=== PATIENT | female | born 1955 | race American Indian/Alaskan Native ===

== ENCOUNTER → 2018-11-27 | Outpatient (CLI) | payer MEDICARE, OTHER ==
[~2018-11-27] MED LIST: ALEN70 PO; ASPI81CH PO; ATOR10 PO; Ativan0.5 MG PO; DIVA250EC PO; LORA.5 PO; ONDA4ODT; PHENYTOIN SODI200 MG PO; RISP1 PO
[2018-11-27 14:33] LABS: Bilirubin, Urine Neg (Neg); Blood, Urine Neg (Neg); Glucose Qualitative, Urine Neg (Neg); Ketones, Urine Neg (Neg); Leukocyte Esterase, Urine Neg (Neg); Nitrite, Urine Neg (Neg); Protein, Urine Neg (Neg); Specific Gravity, Urine 1.015 (1.003-1.022); Urobilinogen, Urine NORM (Normal)
[2018-11-27 14:52] LABS: Appearance, Urine Clear (Clear); Color, Urine Yellow (P-Yellow)
== END | disposition home or self-care (01) ==
LOC: LAB SHORT 14:15 → LAB 14:15
PROVIDERS: Registered Nurse
DX: N39.0 Urinary tract infection, site not specified (principal)
CPT/HCPCS: 81003

== ENCOUNTER → 2019-07-05 | Outpatient (CLI) | payer MEDICARE, OTHER ==
[2019-07-07 13:33] LABS: Source, Urine Clean Catch
[2019-07-07 14:32] LABS: Bilirubin, Urine Neg (Neg); Blood, Urine Neg (Neg); Glucose Qualitative, Urine Neg (Neg); Ketones, Urine Neg (Neg); Leukocyte Esterase, Urine Neg (Neg); Nitrite, Urine Neg (Neg); Protein, Urine Neg (Neg); Specific Gravity, Urine 1.015 (1.003-1.022); Urobilinogen, Urine NORM (Normal)
[2019-07-07 15:25] LABS: Appearance, Urine Clear (Clear); Color, Urine Yellow (P-Yellow)
== END | disposition home or self-care (01) ==
LOC: LAB SHORT 13:28 → LAB 13:28
PROVIDERS: Registered Nurse
DX: N39.0 Urinary tract infection, site not specified (principal)
CPT/HCPCS: 81003

== ENCOUNTER → 2019-08-01 | Outpatient (CLI) | payer MEDICARE, OTHER ==
[2019-08-01 14:48] LABS: Dilantin (Phenytoin), Total 18.2 ug/mL (10.0-20.0); Valproic Acid 44.3 ug/mL (50.0-100.0)
== END | disposition home or self-care (01) ==
LOC: LAB SHORT 12:25 → LAB 12:25
PROVIDERS: Registered Nurse
DX: Z51.81 Encounter for therapeutic drug level monitoring (principal); Z79.899 Other long term (current) drug therapy
CPT/HCPCS: 80164; 80185

== ENCOUNTER → 2020-05-12 | Outpatient (CLI) | payer MEDICARE, OTHER ==
[2020-05-12 14:02] LABS: Dilantin (Phenytoin), Total 13.1 ug/mL (10.0-20.0); Valproic Acid 54.7 ug/mL (50.0-100.0)
== END | disposition home or self-care (01) ==
LOC: LAB SHORT 12:29 → LAB 12:29
PROVIDERS: Registered Nurse
DX: Z51.81 Encounter for therapeutic drug level monitoring (principal); Z79.899 Other long term (current) drug therapy
CPT/HCPCS: 80164; 80185

== ENCOUNTER → 2020-07-28 | Outpatient (CLI) | payer MEDICARE, OTHER | END | disposition home or self-care (01) | LOC: LAB SHORT 09:15 → LAB 09:15 | DX: Z51.81 Encounter for therapeutic drug level monitoring (principal); Z79.899 Other long term (current) drug therapy | CPT/HCPCS: 80164; 80185 ==

== ENCOUNTER → 2020-10-20 | Outpatient (CLI) | payer MEDICARE, OTHER ==
[2020-10-20 15:13] LABS: BASOPHILS ABSOLUTE AUTO 0.01 K/mm3 (0.00-0.23); BASOPHILS PERCENT AUTO 0 % (0-2); EOSINOPHILS ABSOLUTE AUTO 0.03 K/mm3 (0.00-0.68); EOSINOPHILS PERCENT AUTO 0 % (0-6); Hematocrit 42.6 % (33.0-51.0); Hemoglobin 14.2 g/dL (11.5-16.0); IMMATURE GRAN ABSOLUTE AUTO 0.02 K/mm3 (0.00-0.10); IMMATURE GRAN PERCENT AUTO 0 % (0-1); LYMPHOCYTES PERCENT AUTO 20 % (21-46); MONOCYTES ABSOLUTE AUTO 1.13 K/mm3 (0.16-1.47); MONOCYTES PERCENT AUTO 13 % (4-13); Mean Corpuscular HGB 32.4 pg (26.0-34.0); Mean Corpuscular HGB Conc 33.3 g/dL (31.5-36.5); Mean Corpuscular Volume 97 fL (80-100); Mean Platelet Volume 10.3 fL (9.1-12.4); NEUTROPHILS ABSOLUTE AUTO 5.75 K/mm3 (1.96-9.15); NEUTROPHILS PERCENT AUTO 67 % (41-73); Platelet Count 176 K/mm3 (150-400); RDW Coefficient Variation 13.6 % (11.7-14.2); RDW Standard Deviation 48.8 fL (35.1-46.3); Red Blood Cell Count 4.38 M/mm3 (3.80-5.20); White Blood Cell Count 8.64 K/mm3 (4.00-11.30)
[2020-10-20 15:31] LABS: Alanine Aminotransfer (ALT/SGP 36 U/L (12-78); Albumin, Blood 3.2 g/dL (3.4-5.0); Albumin/Globulin Ratio 0.8 (0.8-1.8); Alk Phos 56 U/L (50-136); Anion Gap 6 mmol/L (6-16); Aspartate Aminotrans (AST/SGOT 52 U/L (12-37); Bilirubin, Total 0.3 mg/dL (0.1-1.0); Blood Urea Nitrogen 13 mg/dL (8-24); Bun/Creatinine Ratio 19.1 (12.0-20.0); CHOL/HDL RATIO 2.2; CO2, Blood 31 mmol/L (21-32); Calcium, Blood 8.8 mg/dL (8.5-10.1); Chloride, Blood 102 mmol/L (98-108); Cholesterol 188 mg/dL (50-200); Creatinine, Blood 0.68 mg/dL (0.40-1.00); Globulin, Blood 4.1 g/dL (2.2-4.0); Glomerular Filtration Rate >60 (60-); Glucose, Blood 83 mg/dL (70-99); HDL Cholesterol 85 mg/dL (>39); Low Density Lipoprotein Chol 84 mg/dL (0-110); Potassium, Blood 4.1 mmol/L (3.5-5.5); Sodium, Blood 139 mmol/L (136-145); Total Protein, Blood 7.3 g/dL (6.4-8.2); Triglycerides 94 mg/dL (30-160); Vancomycin, Random <0.8 ug/mL; Very Low Density Lipoprot Chol 18 mg/dL (6-32)
== END | disposition home or self-care (01) ==
LOC: LAB 07:35 → LAB SHORT 07:35
PROVIDERS: Registered Nurse
DX: Z51.81 Encounter for therapeutic drug level monitoring (principal); E78.5 Hyperlipidemia, unspecified; Z79.899 Other long term (current) drug therapy
CPT/HCPCS: 80053; 80061; 80185; 80202; 85025

== ENCOUNTER → 2020-10-28 | Outpatient (CLI) | payer MEDICARE, OTHER ==
[2020-10-28 17:31] LABS: Dilantin (Phenytoin), Total 5.3 ug/mL (10.0-20.0); Valproic Acid 77.4 ug/mL (50.0-100.0)
== END | disposition home or self-care (01) ==
LOC: LAB SHORT 13:27 → LAB 13:27
PROVIDERS: Registered Nurse
DX: Z51.81 Encounter for therapeutic drug level monitoring (principal); Z79.899 Other long term (current) drug therapy
CPT/HCPCS: 80164; 80185

== ENCOUNTER → 2021-04-05 | Outpatient (CLI) | payer MEDICARE, OTHER ==
[2021-04-05 15:49] LABS: Dilantin (Phenytoin), Total 6.8 ug/mL (10.0-20.0)
== END | disposition home or self-care (01) ==
LOC: LAB SHORT 07:43 → LAB 07:43
PROVIDERS: Registered Nurse
DX: R89.2 Abnormal level of other drugs, medicaments and biological substances in specimens from other organs, systems and tissues (principal)
CPT/HCPCS: 80185

== ENCOUNTER → 2021-05-09 | Outpatient (CLI) | payer MEDICARE, OTHER ==
[2021-05-09 13:05] LABS: Dilantin (Phenytoin), Total 14.3 ug/mL (10.0-20.0); Valproic Acid 55.4 ug/mL (50.0-100.0)
== END ==
LOC: LAB SHORT 11:11
PROVIDERS: Registered Nurse
DX: Z51.81 Encounter for therapeutic drug level monitoring (principal); Z79.899 Other long term (current) drug therapy; R56.9 Unspecified convulsions
CPT/HCPCS: 80164; 80185

== ENCOUNTER → 2021-07-15 | Outpatient (CLI) | payer OTHER ==
[2021-07-15 18:35] LABS: Source, Urine Clean Catch
[2021-07-15 19:25] LABS: Appearance, Urine Clear (Clear); Bilirubin, Urine Neg (Neg); Blood, Urine Neg (Neg); Color, Urine Yellow (P-Yellow); Glucose Qualitative, Urine Neg (Neg); Ketones, Urine Neg (Neg); Leukocyte Esterase, Urine Neg (Neg); Nitrite, Urine Neg (Neg); Protein, Urine Neg (Neg); Urobilinogen, Urine NORM (Normal)
== END ==
LOC: LAB SHORT 18:33
PROVIDERS: Registered Nurse
DX: N39.0 Urinary tract infection, site not specified (principal)
CPT/HCPCS: 81003

== ENCOUNTER → 2021-08-10 | Outpatient (CLI) | payer OTHER ==
[2021-08-10 13:48] LABS: Dilantin (Phenytoin), Total 19.9 ug/mL (10.0-20.0); Valproic Acid 58.1 ug/mL (50.0-100.0)
== END | disposition home or self-care (01) ==
LOC: LAB SHORT 08:10
PROVIDERS: Registered Nurse
DX: Z51.81 Encounter for therapeutic drug level monitoring (principal); Z79.899 Other long term (current) drug therapy
CPT/HCPCS: 80164; 80185

== ENCOUNTER → 2021-10-02 | Outpatient (CLI) | payer OTHER ==
[2021-10-03 14:21] LABS: Source, Urine Clean Catch
[2021-10-03 15:01] LABS: Appearance, Urine Clear (Clear); Bilirubin, Urine Neg (Neg); Blood, Urine 2+ (Neg); Glucose Qualitative, Urine Neg (Neg); Ketones, Urine Neg (Neg); Leukocyte Esterase, Urine Neg (Neg); Nitrite, Urine Neg (Neg); Protein, Urine Neg (Neg); Specific Gravity, Urine 1.015 (1.003-1.022); Urobilinogen, Urine NORM (Normal)
[2021-10-03 15:25] LABS: Color, Urine Pale Yellow (P-Yellow)
[2021-10-03 15:27] LABS: Bacteria Few /hpf; Squamous Epithelial Cells Few /hpf (Few); White Blood Cells, Urine 0-2 /hpf (0-5)
== END | disposition home or self-care (01) ==
LOC: LAB SHORT 14:16 → LAB 14:16
PROVIDERS: Registered Nurse
DX: N39.0 Urinary tract infection, site not specified (principal)
CPT/HCPCS: 81001

== ENCOUNTER → 2021-11-01 | Outpatient (CLI) | payer OTHER ==
[2021-11-01 12:31] LABS: BASOPHILS ABSOLUTE AUTO 0.04 K/mm3 (0.00-0.23); BASOPHILS PERCENT AUTO 1 % (0-2); EOSINOPHILS PERCENT AUTO 1 % (0-6); Hematocrit 43.9 % (33.0-51.0); Hemoglobin 14.3 g/dL (11.5-16.0); IMMATURE GRAN ABSOLUTE AUTO 0.01 K/mm3 (0.00-0.10); IMMATURE GRAN PERCENT AUTO 0 % (0-1); LYMPHOCYTES ABSOLUTE AUTO 2.88 K/mm3 (0.84-5.20); LYMPHOCYTES PERCENT AUTO 42 % (21-46); MONOCYTES ABSOLUTE AUTO 0.65 K/mm3 (0.16-1.47); MONOCYTES PERCENT AUTO 9 % (4-13); Mean Corpuscular HGB 31.6 pg (26.0-34.0); Mean Corpuscular HGB Conc 32.6 g/dL (31.5-36.5); Mean Corpuscular Volume 97 fL (80-100); Mean Platelet Volume 10.8 fL (9.1-12.4); NEUTROPHILS ABSOLUTE AUTO 3.24 K/mm3 (1.96-9.15); NEUTROPHILS PERCENT AUTO 47 % (41-73); Platelet Count 216 K/mm3 (150-400); RDW Coefficient Variation 13.5 % (11.7-14.2); RDW Standard Deviation 48.3 fL (35.1-46.3); Red Blood Cell Count 4.53 M/mm3 (3.80-5.20); White Blood Cell Count 6.92 K/mm3 (4.00-11.30)
[2021-11-01 13:38] LABS: Alanine Aminotransfer (ALT/SGP 27 U/L (12-78); Albumin, Blood 3.3 g/dL (3.4-5.0); Albumin/Globulin Ratio 0.9 (0.8-1.8); Alk Phos 74 U/L (50-136); Anion Gap 2 mmol/L (6-16); Aspartate Aminotrans (AST/SGOT 11 U/L (12-37); Bilirubin, Total 0.3 mg/dL (0.1-1.0); Blood Urea Nitrogen 14 mg/dL (8-24); Bun/Creatinine Ratio 24.9 (12.0-20.0); CHOL/HDL RATIO 2.6; CO2, Blood 32 mmol/L (21-32); Calcium, Blood 9.2 mg/dL (8.5-10.1); Chloride, Blood 108 mmol/L (98-108); Cholesterol 181 mg/dL (50-200); Creatinine, Blood 0.56 mg/dL (0.40-1.00); Dilantin (Phenytoin), Total 17.4 ug/mL (10.0-20.0); Globulin, Blood 3.7 g/dL (2.2-4.0); Glomerular Filtration Rate 102 (60-); Glucose, Blood 90 mg/dL (70-99); HDL Cholesterol 69 mg/dL (>39); LDL/HDL RATIO 1.2; Low Density Lipoprotein Chol 83 mg/dL (0-110); Potassium, Blood 4.2 mmol/L (3.5-5.5); Sodium, Blood 142 mmol/L (136-145); Triglycerides 145 mg/dL (30-160); Very Low Density Lipoprot Chol 29 mg/dL (6-32)
[2021-11-01 18:40] LABS: Source, Urine Clean Catch
[2021-11-01 19:43] LABS: Appearance, Urine Clear (Clear); Bilirubin, Urine Neg (Neg); Blood, Urine Neg (Neg); Color, Urine Yellow (P-Yellow); Glucose Qualitative, Urine Neg (Neg); Ketones, Urine Neg (Neg); Leukocyte Esterase, Urine Neg (Neg); Nitrite, Urine Neg (Neg); Protein, Urine Neg (Neg); Urobilinogen, Urine NORM (Normal)
== END ==
LOC: LAB SHORT 09:25 → LAB 09:25
PROVIDERS: Registered Nurse
DX: Z51.81 Encounter for therapeutic drug level monitoring (principal); E78.5 Hyperlipidemia, unspecified; I10 Essential (primary) hypertension; Z79.899 Other long term (current) drug therapy
CPT/HCPCS: 36415; 80053; 80061; 80164; 80185; 81003; 85025

== ENCOUNTER → 2022-02-01 | Outpatient (CLI) | payer OTHER ==
[2022-02-01 13:51] LABS: Dilantin (Phenytoin), Total 19.3 ug/mL (10.0-20.0); Valproic Acid 48.3 ug/mL (50.0-100.0)
== END ==
LOC: LAB 08:45 → LAB SHORT 08:45
PROVIDERS: Registered Nurse
DX: Z51.81 Encounter for therapeutic drug level monitoring (principal); Z79.899 Other long term (current) drug therapy
CPT/HCPCS: 80164; 80185

== ENCOUNTER → 2022-03-03 | Outpatient (CLI) | payer MEDICARE, OTHER ==
[2022-03-03 20:11] LABS: Appearance, Urine Clear (Clear); Bilirubin, Urine Neg (Neg); Blood, Urine Neg (Neg); Color, Urine Yellow (P-Yellow); Glucose Qualitative, Urine Neg (Neg); Ketones, Urine Neg (Neg); Leukocyte Esterase, Urine Neg (Neg); Nitrite, Urine Neg (Neg); Protein, Urine Neg (Neg); Specific Gravity, Urine 1.015 (1.003-1.022); Urobilinogen, Urine NORM (Normal); pH, Urine 6.5 (5.0-8.0)
== END | disposition home or self-care (01) ==
LOC: LAB SHORT 13:45
PROVIDERS: Registered Nurse
DX: N39.0 Urinary tract infection, site not specified (principal)
CPT/HCPCS: 81003

== ENCOUNTER → 2022-08-02 | Outpatient (CLI) | payer OTHER ==
[2022-08-02 13:04] LABS: Dilantin (Phenytoin), Total 15.4 ug/mL (10.0-20.0); Valproic Acid 26.7 ug/mL (50.0-100.0)
== END | disposition home or self-care (01) ==
LOC: LAB SHORT 10:03 → LAB 10:03
PROVIDERS: Registered Nurse
DX: Z51.81 Encounter for therapeutic drug level monitoring (principal); G40.89 Other seizures; Z79.899 Other long term (current) drug therapy
CPT/HCPCS: 80164; 80185

== ENCOUNTER → 2022-09-15 | Outpatient (CLI) | payer OTHER ==
[2022-09-15 13:51] LABS: Valproic Acid 35.4 ug/mL (50.0-100.0)
[2022-09-15 13:52] LABS: Alanine Aminotransfer (ALT/SGP 34 U/L (12-78); Albumin, Blood 3.1 g/dL (3.4-5.0); Alk Phos 44 U/L (50-136); Anion Gap 6 mmol/L (6-16); Aspartate Aminotrans (AST/SGOT 38 U/L (12-37); Bilirubin, Total 0.5 mg/dL (0.1-1.0); Blood Urea Nitrogen 26 mg/dL (8-24); Bun/Creatinine Ratio 33.3 (12.0-20.0); CO2, Blood 28 mmol/L (21-32); Calcium, Blood 8.7 mg/dL (8.5-10.1); Chloride, Blood 107 mmol/L (98-108); Creatinine, Blood 0.78 mg/dL (0.40-1.00); Dilantin (Phenytoin), Total 9.4 ug/mL (10.0-20.0); Globulin, Blood 3.2 g/dL (2.2-4.0); Glomerular Filtration Rate 84 (60-); Glucose, Blood 123 mg/dL (70-99); Phosphorus, Blood 3.5 mg/dL (2.5-4.9); Potassium, Blood 4.1 mmol/L (3.5-5.5); Sodium, Blood 141 mmol/L (136-145); Total Protein, Blood 6.3 g/dL (6.4-8.2)
[2022-09-21 14:09] LABS: 25-HYDROXY, VITAMIN D 54 ng/mL (.); 25-HYDROXY, VITAMIN D-2 <1.0 ng/mL (.); 25-HYDROXY, VITAMIN D-3 54 ng/mL (.)
== END | disposition home or self-care (01) ==
LOC: LAB 09:20 → LAB SHORT 09:20
PROVIDERS: Registered Nurse
DX: Z51.81 Encounter for therapeutic drug level monitoring (principal); M81.0 Age-related osteoporosis without current pathological fracture; Z79.899 Other long term (current) drug therapy
CPT/HCPCS: 80053; 80164; 80185; 84100

== ENCOUNTER → 2022-10-16 | Outpatient (CLI) | payer OTHER ==
[2022-10-16 19:02] LABS: Source, Urine Clean Catch
[2022-10-16 19:44] LABS: Bilirubin, Urine Neg (Neg); Blood, Urine Neg (Neg); Color, Urine Yellow (P-Yellow); Glucose Qualitative, Urine Neg (Neg); Nitrite, Urine Neg (Neg)
[2022-10-16 19:55] LABS: Appearance, Urine Hazy (Clear); Ketones, Urine 1+ (Neg); Leukocyte Esterase, Urine 2+ (Neg); Protein, Urine 3+ (Neg); Urobilinogen, Urine NORM (Normal)
[2022-10-16 20:04] LABS: Hyaline Casts 0-2 /lpf (0-2); Mucus Light (0-Heavy); Squamous Epithelial Cells Few /hpf (Few); Transitional Epithelial Cells Rare /hpf (0-Rare)
[2022-10-16 20:05] LABS: Amorphous Light (0-Heavy); Bacteria Mod /hpf; Red Blood Cells, Urine 0-2 /hpf (0-2)
== END | disposition home or self-care (01) ==
LOC: LAB SHORT 19:00 → LAB 19:00
PROVIDERS: Registered Nurse
DX: N39.0 Urinary tract infection, site not specified (principal)
CPT/HCPCS: 81001; 87086

== ENCOUNTER 2022-12-01 16:27 | Emergency (ER) | payer OTHER ==
[~2022-12-01] VITALS: Ht 165.1 cm; Wt 556.6 kg
[2022-12-01 17:52] LABS: Source, Urine Straight Cath
[2022-12-01 17:55] LABS: Appearance, Urine Hazy (Clear); Bilirubin, Urine Neg (Neg); Blood, Urine Neg (Neg); Color, Urine Yellow (P-Yellow); Glucose Qualitative, Urine Neg (Neg); Ketones, Urine Neg (Neg); Leukocyte Esterase, Urine 1+ (Neg); Nitrite, Urine Neg (Neg); Protein, Urine Neg (Neg); Specific Gravity, Urine 1.015 (1.003-1.022); Urobilinogen, Urine NORM (Normal)
[2022-12-01 18:09] LABS: Red Blood Cells, Urine 0-2 /hpf (0-2); Squamous Epithelial Cells Few /hpf (Few)
[2022-12-01 18:10] LABS: Amorphous Light (0-Heavy); Bacteria Mod /hpf
[2022-12-01 18:36] LABS: BASOPHILS ABSOLUTE AUTO 0.04 K/mm3 (0.00-0.23); BASOPHILS PERCENT AUTO 1 % (0-2); EOSINOPHILS ABSOLUTE AUTO 0.08 K/mm3 (0.00-0.68); EOSINOPHILS PERCENT AUTO 1 % (0-6); Hematocrit 42.3 % (33.0-51.0); Hemoglobin 14.1 g/dL (11.5-16.0); IMMATURE GRAN ABSOLUTE AUTO 0.01 K/mm3 (0.00-0.10); IMMATURE GRAN PERCENT AUTO 0 % (0-1); LYMPHOCYTES ABSOLUTE AUTO 3.09 K/mm3 (0.84-5.20); LYMPHOCYTES PERCENT AUTO 38 % (21-46); MONOCYTES ABSOLUTE AUTO 0.88 K/mm3 (0.16-1.47); MONOCYTES PERCENT AUTO 11 % (4-13); Mean Corpuscular HGB 32.5 pg (26.0-34.0); Mean Corpuscular HGB Conc 33.3 g/dL (31.5-36.5); Mean Corpuscular Volume 98 fL (80-100); Mean Platelet Volume 9.8 fL (9.1-12.4); NEUTROPHILS ABSOLUTE AUTO 4.05 K/mm3 (1.96-9.15); NEUTROPHILS PERCENT AUTO 50 % (41-73); Platelet Count 154 K/mm3 (150-400); RDW Standard Deviation 50.5 fL (35.1-46.3); Red Blood Cell Count 4.34 M/mm3 (3.80-5.20); White Blood Cell Count 8.15 K/mm3 (4.00-11.30)
[2022-12-01 18:58] LABS: Albumin, Blood 3.1 g/dL (3.4-5.0); Albumin/Globulin Ratio 0.8 (0.8-1.8); Bilirubin, Total 0.5 mg/dL (0.1-1.0); Bun/Creatinine Ratio 29.1 (12.0-20.0); Calcium, Blood 8.8 mg/dL (8.5-10.1); Creatinine, Blood 0.93 mg/dL (0.40-1.00); Globulin, Blood 3.9 g/dL (2.2-4.0); Potassium, Blood 4.5 mmol/L (3.5-5.5)
[2022-12-01] MEDS ORDERED: SULTRIDS PO (23:53)
[2022-12-01] MEDS ORDERED: LIDO700A20 TOP (23:53)
[2022-12-02 01:42] VITALS: BP 101/61
== END 2022-12-02 01:44 | disposition home or self-care (01) ==
LOC: ER 16:27
PROVIDERS: Emergency Medicine
DX: N39.0 Urinary tract infection, site not specified (principal); Z88.0 Allergy status to penicillin; Z88.1 Allergy status to other antibiotic agents; Z79.82 Long term (current) use of aspirin; Z79.899 Other long term (current) drug therapy; Z86.73 Personal history of transient ischemic attack (TIA), and cerebral infarction without residual deficits
CPT/HCPCS: 36415; 74177; 80053; 81001; 85025; 87086; 96374; 99284-25; J1885; Q9967

== ENCOUNTER 2022-12-14 09:41 | Emergency (ER) | payer OTHER ==
[~2022-12-14] VITALS: Ht 162.6 cm; Wt 70.3 kg
[~2022-12-14 09:41] MED LIST changes: +LIDO700A20 TOP; +SULTRIDS PO
[2022-12-14 15:00] VITALS: BP 121/87
== END 2022-12-14 15:50 | disposition home or self-care (01) ==
LOC: ER 09:41
DX: S16.1XXA Strain of muscle, fascia and tendon at neck level, initial encounter (principal); S00.83XA Contusion of other part of head, initial encounter; W18.30XA Fall on same level, unspecified, initial encounter; E78.5 Hyperlipidemia, unspecified
CPT/HCPCS: 70450; 72125; 99284-25; A9270

== ENCOUNTER → 2022-12-26 | Outpatient (CLI) | payer OTHER ==
[2022-12-27 10:38] LABS: Source, Urine Clean Catch
[2022-12-27 11:38] LABS: Appearance, Urine Clear (Clear); Bilirubin, Urine Neg (Neg); Blood, Urine Neg (Neg); Color, Urine Yellow (P-Yellow); Glucose Qualitative, Urine Neg (Neg); Ketones, Urine Neg (Neg); Leukocyte Esterase, Urine Neg (Neg); Nitrite, Urine Neg (Neg); Protein, Urine Neg (Neg); Urobilinogen, Urine NORM (Normal); pH, Urine 6.5 (5.0-8.0)
== END ==
LOC: LAB 19:00 → LAB SHORT 19:00
PROVIDERS: Registered Nurse
DX: N39.0 Urinary tract infection, site not specified (principal)
CPT/HCPCS: 81003

== ENCOUNTER → 2023-01-24 | Outpatient (CLI) | payer OTHER ==
[2023-01-24 17:41] LABS: Dilantin (Phenytoin), Total 15.4 ug/mL (10.0-20.0); Valproic Acid 48.3 ug/mL (50.0-100.0)
== END ==
LOC: LAB SHORT 11:13 → LAB 11:13
PROVIDERS: Registered Nurse
DX: Z51.81 Encounter for therapeutic drug level monitoring (principal)
CPT/HCPCS: 80164; 80185

== ENCOUNTER 2023-02-02 19:34 | Emergency (ER) | payer OTHER ==
[~2023-02-02] VITALS: Ht 162.6 cm; Wt 55.3 kg
[2023-02-02 20:19] LABS: BASOPHILS ABSOLUTE AUTO 0.02 K/mm3 (0.00-0.23); BASOPHILS PERCENT AUTO 0 % (0-2); EOSINOPHILS ABSOLUTE AUTO 0.08 K/mm3 (0.00-0.68); EOSINOPHILS PERCENT AUTO 1 % (0-6); Hematocrit 39.6 % (33.0-51.0); Hemoglobin 13.2 g/dL (11.5-16.0); IMMATURE GRAN ABSOLUTE AUTO 0.03 K/mm3 (0.00-0.10); IMMATURE GRAN PERCENT AUTO 0 % (0-1); LYMPHOCYTES ABSOLUTE AUTO 2.13 K/mm3 (0.84-5.20); LYMPHOCYTES PERCENT AUTO 25 % (21-46); MONOCYTES ABSOLUTE AUTO 1.16 K/mm3 (0.16-1.47); MONOCYTES PERCENT AUTO 14 % (4-13); Mean Corpuscular HGB 32.8 pg (26.0-34.0); Mean Corpuscular HGB Conc 33.3 g/dL (31.5-36.5); Mean Corpuscular Volume 99 fL (80-100); NEUTROPHILS PERCENT AUTO 60 % (41-73); Platelet Count 175 K/mm3 (150-400); RDW Coefficient Variation 14.4 % (11.7-14.2); Red Blood Cell Count 4.02 M/mm3 (3.80-5.20); White Blood Cell Count 8.52 K/mm3 (4.00-11.30)
[2023-02-02 20:38] LABS: Albumin/Globulin Ratio 0.7 (0.8-1.8); Bilirubin, Total 0.6 mg/dL (0.1-1.0); Calcium, Blood 8.7 mg/dL (8.5-10.1); Creatinine, Blood 1.12 mg/dL (0.40-1.00); Globulin, Blood 4.3 g/dL (2.2-4.0); Potassium, Blood 4.8 mmol/L (3.5-5.5); Total Protein, Blood 7.3 g/dL (6.4-8.2)
[2023-02-02] MEDS ORDERED: CALCIUM 600 +1 EA11 (22:26)
[2023-02-02] MEDS ORDERED: DOCU100 (22:27)
[2023-02-02] MEDS ORDERED: NAPROXEN500 MG (22:28)
[2023-02-02] MEDS ORDERED: LORA.5 (22:28)
[2023-02-02] MEDS ORDERED: RISP.25 (22:29)
[2023-02-02] MEDS ORDERED: BISA10S (22:30)
[2023-02-02] MEDS ORDERED: BENZ100A (22:30)
[2023-02-02] MEDS ORDERED: ACET325 (22:30)
[2023-02-02] MEDS ORDERED: Triamcinolone A15 G2 (22:31)
[2023-02-02] MEDS ORDERED: DULCOLAX400 MG/5 M (22:31)
[2023-02-02] MEDS ORDERED: LOPE2C (22:31)
[2023-02-02] MEDS ORDERED: HYDHCL25 (22:31)
[2023-02-02] MEDS ORDERED: NEOPOLDEXO (22:32)
[2023-02-02 23:00] VITALS: BP 112/68
== END 2023-02-03 00:04 | disposition home or self-care (01) ==
LOC: ER 19:34
PROVIDERS: Student in an Organized Health Care Education/Training Program
DX: S00.31XA Abrasion of nose, initial encounter (principal); M54.2 Cervicalgia; W05.0XXA Fall from non-moving wheelchair, initial encounter; Z88.0 Allergy status to penicillin; Z88.1 Allergy status to other antibiotic agents; Z79.899 Other long term (current) drug therapy; Z79.82 Long term (current) use of aspirin; E78.5 Hyperlipidemia, unspecified
CPT/HCPCS: 70450; 72125; 80053; 85025; 93005; 93010; 99284-25; A9270; J7030

== ENCOUNTER 2023-02-07 16:02 | Emergency (ER) | payer OTHER ==
[~2023-02-07] VITALS: Ht 165.1 cm; Wt 68.0 kg
[~2023-02-07 16:02] MED LIST changes: +ACET325; +BENZ100A; +BISA10S; +CALCIUM 600 +1 EA11; +DOCU100; +DULCOLAX400 MG/5 M; +HYDHCL25; +LOPE2C; +LORA.5; +NAPROXEN500 MG; +NEOPOLDEXO; +RISP.25; +Triamcinolone A15 G2
[2023-02-07 19:30] VITALS: BP 119/83
== END 2023-02-07 19:51 | disposition home or self-care (01) ==
LOC: ER 16:02
DX: S09.90XA Unspecified injury of head, initial encounter (principal); S16.1XXA Strain of muscle, fascia and tendon at neck level, initial encounter; S80.02XA Contusion of left knee, initial encounter; S00.33XA Contusion of nose, initial encounter; E78.5 Hyperlipidemia, unspecified; M81.0 Age-related osteoporosis without current pathological fracture; W05.0XXA Fall from non-moving wheelchair, initial encounter; Z79.899 Other long term (current) drug therapy; Z79.82 Long term (current) use of aspirin
CPT/HCPCS: 70450; 72125; 73562-LT; 93005; 93010; 99285-25